=== PATIENT | female | born 1935 | race African-American/Black ===

== ENCOUNTER 2021-06-13 08:41 | Inpatient (IN) | payer OTHER ==
[~2021-06-13] VITALS: Ht 162.6 cm; Wt 63.5 kg
[2021-06-25] MEDS ORDERED: XOPENEX0.63 MG/3 IH (15:28)
[2021-06-25] MEDS ORDERED: AMLODIPINE BESYL5 MG PO (15:29)
[2021-06-25] MEDS ORDERED: LIPITOR20 MG PO (15:29)
[2021-06-25] MEDS ORDERED: CLOPIDOGREL BIS75 MG PO (15:29)
[2021-06-25] MEDS ORDERED: ISOSORBIDE MONO30 MG PO (15:29)
[2021-06-25] MEDS ORDERED: HYDRALAZINE HCL25 MG PO (15:30)
[2021-06-25] MEDS ORDERED: INTESTINEX680 M1 PO (15:30)
[2021-06-25] MEDS ORDERED: POLY119PG PO (15:31)
[2021-06-25] MEDS ORDERED: HUMULIN 70100 UNIT/2 SUBCUTANEO (15:32)
[2021-06-25] MEDS ORDERED: INSULIN SYRING1 EA11 SUBCUTANEO (15:34)
[2021-06-25] MEDS ORDERED: PROTONIX40 MG PO (15:34)
[2021-06-25] MEDS ORDERED: LASIX20 MG PO (15:35)
== END 2021-06-26 19:22 | disposition home or self-care (01) | DRG 207 ==
LOC: ER 08:41 → ICU-2 13:11 → ICU 13:11 → MEDI 06-19 20:08
PROVIDERS: ADMIT Internal Medicine; ATTEND Internal Medicine
PROC: 5A1955Z Respiratory Ventilation, Greater than 96 Consecutive Hours (ICD-10-PCS; principal; 2021-06-13)
PROC: 0BH17EZ Insertion of Endotracheal Airway into Trachea, Via Natural or Artificial Opening (ICD-10-PCS; 2021-06-13)
PROC: 4A12X4Z Monitoring of Cardiac Electrical Activity, External Approach (ICD-10-PCS; 2021-06-13)
PROC: 3E0F7GC Introduction of Other Therapeutic Substance into Respiratory Tract, Via Natural or Artificial Opening (ICD-10-PCS; 2021-06-13)
PROC: B246ZZZ Ultrasonography of Right and Left Heart (ICD-10-PCS; 2021-06-13)
PROC: 3E0F7SF Introduction of Other Gas into Respiratory Tract, Via Natural or Artificial Opening (ICD-10-PCS; 2021-06-16)
PROC: 0W9B30Z Drainage of Left Pleural Cavity with Drainage Device, Percutaneous Approach (ICD-10-PCS; 2021-06-18)
PROC: BW24ZZZ Computerized Tomography (CT Scan) of Chest and Abdomen (ICD-10-PCS; 2021-06-19)
DX: J96.01 Acute respiratory failure with hypoxia (principal); J15.0 Pneumonia due to Klebsiella pneumoniae; I21.A1 Myocardial infarction type 2; I50.1 Left ventricular failure, unspecified; N17.8 Other acute kidney failure; J90 Pleural effusion, not elsewhere classified; I16.9 Hypertensive crisis, unspecified; J96.02 Acute respiratory failure with hypercapnia; I11.0 Hypertensive heart disease with heart failure; I50.9 Heart failure, unspecified; I25.118 Atherosclerotic heart disease of native coronary artery with other forms of angina pectoris; E11.9 Type 2 diabetes mellitus without complications; R53.1 Weakness; B96.5 Pseudomonas (aeruginosa) (mallei) (pseudomallei) as the cause of diseases classified elsewhere; B96.89 Other specified bacterial agents as the cause of diseases classified elsewhere; Z79.84 Long term (current) use of oral hypoglycemic drugs; Z20.822 Contact with and (suspected) exposure to COVID-19

== ENCOUNTER 2021-09-30 01:07 | Inpatient (IN) | payer OTHER ==
[~2021-09-30] VITALS: Ht 172.7 cm; Wt 56.7 kg
[~2021-09-30 01:07] MED LIST: AMLODIPINE BESYL5 MG PO; CLOPIDOGREL BIS75 MG PO; HUMULIN 70100 UNIT/2 SUBCUTANEO; HYDRALAZINE HCL25 MG PO; INSULIN SYRING1 EA11 SUBCUTANEO; INTESTINEX680 M1 PO; ISOSORBIDE MONO30 MG PO; LASIX20 MG PO; LIPITOR20 MG PO; POLY119PG PO; PROTONIX40 MG PO; XOPENEX0.63 MG/3 IH
--- NOTE | 2021-09-30 02:00 | NUR ---
PATIENT IS RECIEVED ALER AND ORIENTED X3. PATIENT SAYS SHE HAS BEEN HAVING RESPIRATORY DIFFICULTY SINCE YESTERDAY. PATIENT IS SHOWING SIGNS OF RESPIRATORY DISTRESS BREATHING ABDOMINALLY AND HYPERVENTILATING. PATIENT HAS EDEMA IN LEFT FOOT AND SAYS THAT SHE WAS ADMITTED EARLIER THIS YEAR FOR HIPOXIA. PATIENT IS TAKEN TO CHEST PAIN PUT IN BED AND CONNECTED TO TELEMETRY WITH OXIMETRY. IV LINES AREA STARTED AND IV MEDS ARE ADMINISTERED AFTER PLACING SALINE LOCKS.
--- NOTE | 2021-09-30 02:25 | NUR ---
PACIENTE CON DIFICULTAD RESPIRATORIA VISIBLE, SATURANDO EN 86% AL MOMENTO. SE ASISTE A DR MCDERMOTT A COLOCAR TUBO ENDOTRAQUEAL CON ASISTENCIA DE PERSONAL DE TERAPIA RESPIRATORIA. SE COLOCA MEDICAMENTOS SADIA ORDEN MEDICA BAJO MEDIDAS ASEPTICAS. DR DONOHUE PTE, SE OBSERVAN VITALES EN B/P 137/70, HR 116 RR 20 SAT 100% CON ASISTENCIA DE VENTILADOR MECANICO PARAMETROS VTM1 400 FO2% 50 MODE ASIST CONT RR 18/MIN. SE OBSERVA CON TRIDIL BAJANDO POR IV PUMP A 3 ML/HR, SE ACOMODA PTE EN COMPANIA DE RN PLATA, SE MANTIENE CON SABANAS LIMPIAS Y SECAS. SE RESTRINGE PTE POR ORDEN DE DR MCDERMOTT, SE COLOCAN RESTRINCIONES FISICAS X2 EN EXTREMIDADES SUPERIORES, AREAS LIBRES DE EDEMA Y ERITEMA. SE CONTINUA EN OBSERVACION POR CAMBIOS EN CONDICION.
--- NOTE | 2021-09-30 04:21 | NUR ---
PACIENTE RESTRINGIDA X2 EN EXTREMIDADES SUPERIORES POR PRECAUSION CON VENTILADOR MECANICO Y DELANEY A GRAVEDAD. SE REALIZAN RONDAS PREVENTIVAS FRECUENTES.
--- NOTE | 2021-09-30 08:06 | NUR ---
SE RECIBE PTE LETARGICA, EN CAMA NIVEL MAS BAJO, FRANCO DE IDENTIFICACION, BARANDAS ELEVADAS POR PRECAUCION. SE OBSERVA CON ENTUBACION ENDOTRAQUEAL #7.0 Y FIJADO EN #23. CON LOS SIGUIENTES PARAMETROS; VT-400, O2-40% ,MODO- ASIST CONDTINUO, RR-18, PEEP-5. AL MOMENTO PTE SE ENCUENTRA RESTRINGIDA X2 EN AMBAS EXTREMIDADES SUPERIORES, SE OBSERVA ALIA DE ERITEMA O ABRASION. PTE TIENE DOS CANALIZACIONES CON SALINE LOCK EN EL BARZO JENNIFER; MANO Y ANTEBRAZO. AMBAS CANALIZACIONES SE REALIZARON CON ANGIO #18, ESTAN PATENTE Y SE OBSERVAN ALIA DE EDEMA Y ERITEMA. PTE TIENE DELANEY, CON EGRESO 700ML DE ORINA AMARILLA FELIX. PTE TIENE BAJANDO TRIDIL 50MG/250ML A 1ML/HR. PTE CONECTADA A MONITOR CARDIACO Y OXIMETRIA DE PULSO CONTINUA. SE MANTIENE BAJO OBSERVACION. PTE EVALUADA POR DR KHANNA Y DR LIANG A LAS 7:40AM
[2021-10-01] MEDS ORDERED: GLIPIZIDE ER2.5 MG (08:11)
[2021-10-01] MEDS ORDERED: PANTOPRAZOLE SO40 MG (08:11)
[2021-10-22] MEDS ORDERED: LOSARTAN POTASS25 MG PO (14:38)
[2021-10-22] MEDS ORDERED: TOPROL XL50 M1 PO (14:38)
[2021-10-22] MEDS ORDERED: DILTIAZEM ER120 M2 PO (14:38)
[2021-10-22] MEDS ORDERED: PANTOPRAZOLE SO40 MG PO (14:38)
[2021-10-22] MEDS ORDERED: ISORDIL10 MG PO (14:38)
[2021-10-22] MEDS ORDERED: LIPITOR20 MG PO (14:38)
[2021-10-22] MEDS ORDERED: FUROSEMIDE40 MG PO (14:38)
[2021-10-22] MEDS ORDERED: CLOPIDOGREL BIS75 MG PO (14:38)
[2021-10-22] MEDS ORDERED: APRESOLINE 10MG10 MG PO (14:38)
== END 2021-10-22 17:15 | disposition home or self-care (01) | DRG 208 ==
LOC: ER 01:07 → MEDJ 10:16 → ICU-2 10:16 → ICU 10-01 03:26 → MEDJ 10-05 11:41
PROVIDERS: ADMIT Internal Medicine; ATTEND Internal Medicine
PROC: 5A1945Z Respiratory Ventilation, 24-96 Consecutive Hours (ICD-10-PCS; principal; 2021-09-30)
PROC: 0BH17EZ Insertion of Endotracheal Airway into Trachea, Via Natural or Artificial Opening (ICD-10-PCS; 2021-09-30)
PROC: B24BZZZ Ultrasonography of Heart with Aorta (ICD-10-PCS; 2021-09-30)
PROC: 4A12X4Z Monitoring of Cardiac Electrical Activity, External Approach (ICD-10-PCS; 2021-10-05)
PROC: BW24ZZZ Computerized Tomography (CT Scan) of Chest and Abdomen (ICD-10-PCS; 2021-10-13)
PROC: 30233N1 Transfusion of Nonautologous Red Blood Cells into Peripheral Vein, Percutaneous Approach (ICD-10-PCS; 2021-10-20)
DX: J96.02 Acute respiratory failure with hypercapnia (principal); I50.23 Acute on chronic systolic (congestive) heart failure; I21.4 Non-ST elevation (NSTEMI) myocardial infarction; R57.0 Cardiogenic shock; R65.10 Systemic inflammatory response syndrome (SIRS) of non-infectious origin without acute organ dysfunction; I13.0 Hypertensive heart and chronic kidney disease with heart failure and stage 1 through stage 4 chronic kidney disease, or unspecified chronic kidney disease; N17.8 Other acute kidney failure; J98.11 Atelectasis; I95.89 Other hypotension; J96.01 Acute respiratory failure with hypoxia; I48.91 Unspecified atrial fibrillation; E78.5 Hyperlipidemia, unspecified; Z79.4 Long term (current) use of insulin; E11.22 Type 2 diabetes mellitus with diabetic chronic kidney disease; D63.1 Anemia in chronic kidney disease; N18.9 Chronic kidney disease, unspecified; Z20.822 Contact with and (suspected) exposure to COVID-19; Z74.01 Bed confinement status

== ENCOUNTER 2021-10-27 01:34 | Inpatient (IN) | payer OTHER ==
[~2021-10-27] VITALS: Ht 157.5 cm; Wt 52.2 kg
[~2021-10-27 01:34] MED LIST changes: +APRESOLINE 10MG10 MG PO; +DILTIAZEM ER120 M2 PO; +FUROSEMIDE40 MG PO; +GLIPIZIDE ER2.5 MG; +ISORDIL10 MG PO; +LOSARTAN POTASS25 MG PO; +PANTOPRAZOLE SO40 MG; +PANTOPRAZOLE SO40 MG PO; +TOPROL XL50 M1 PO
== END 2021-11-06 17:57 | disposition home or self-care (01) | DRG 291 ==
LOC: ER 01:34 → ICU-2 09:28 → ICU 09:28 → MEDJ 10-30 21:26
PROVIDERS: ADMIT Internal Medicine; ATTEND Internal Medicine
PROC: 4A12X4Z Monitoring of Cardiac Electrical Activity, External Approach (ICD-10-PCS; principal; 2021-10-27)
PROC: 3E0F7SF Introduction of Other Gas into Respiratory Tract, Via Natural or Artificial Opening (ICD-10-PCS; 2021-10-27)
PROC: 3E0F7GC Introduction of Other Therapeutic Substance into Respiratory Tract, Via Natural or Artificial Opening (ICD-10-PCS; 2021-10-27)
PROC: B246ZZZ Ultrasonography of Right and Left Heart (ICD-10-PCS; 2021-10-29)
PROC: 0W9930Z Drainage of Right Pleural Cavity with Drainage Device, Percutaneous Approach (ICD-10-PCS; 2021-10-31)
DX: I13.0 Hypertensive heart and chronic kidney disease with heart failure and stage 1 through stage 4 chronic kidney disease, or unspecified chronic kidney disease (principal); I50.23 Acute on chronic systolic (congestive) heart failure; N17.8 Other acute kidney failure; J90 Pleural effusion, not elsewhere classified; N39.0 Urinary tract infection, site not specified; I48.91 Unspecified atrial fibrillation; N18.9 Chronic kidney disease, unspecified; E11.40 Type 2 diabetes mellitus with diabetic neuropathy, unspecified; E11.22 Type 2 diabetes mellitus with diabetic chronic kidney disease; B96.20 Unspecified Escherichia coli [E. coli] as the cause of diseases classified elsewhere; Z79.4 Long term (current) use of insulin; Z20.822 Contact with and (suspected) exposure to COVID-19